=== PATIENT | male | born 1985 | race Caucasian/White ===

== ENCOUNTER 2021-01-21 10:18 | Emergency (ER) | payer OTHER | END 2021-01-21 11:13 | disposition home or self-care (01) | LOC: ER1 10:18 | DX: S80.11XA Contusion of right lower leg, initial encounter (principal); F17.210 Nicotine dependence, cigarettes, uncomplicated; W22.8XXA Striking against or struck by other objects, initial encounter | CPT/HCPCS: 73590; 99283 ==